=== PATIENT | female | born 1975 | race Caucasian/White ===

== ENCOUNTER 2021-08-13 17:25 | Emergency (ER) | payer BC ==
[2021-08-13 17:31] VITALS: BP 113/77
--- NOTE | 2021-08-13 17:41 | ED Physician Documentation ---
PD HPI BACK PAIN - Stated complaint Stated Complaint: BACK PX - Chief complaint Chief Complaint: Back Pain - History obtained from History obtained from: Patient - Additional information Additional information: Otherwise healthy 45-year-old woman broke her left transverse process, she thinks L1, about 2 years ago with a simple lifting accident. It was confirmed on imaging. She had pain for about a year. Today she was lifting and developed the same left-sided pain. It briefly radiated into the left leg. There is no saddle anesthesia, incontinence, weakness, fevers. No possibility of . She took Tylenol and ibuprofen prior to arrival and thinks that is sufficient. Review of Systems Constitutional: denies: Fever, Chills Musculoskeletal: reports: Back pain. denies: Neck pain PD PAST MEDICAL HISTORY - Present Medications Home Medications: Ambulatory Orders Medication Instructions Recorded Confirmed Physical Therapyx 1 unit TD ONCE #1 08/13/21 - Allergies Allergies/Adverse Reactions: Allergies Allergy/AdvReac Type Severity Reaction Status Date / Time Penicillins Allergy Unknown Verified 08/13/21 17:32 PD ED PE NORMAL - Vitals Vital signs reviewed: Yes - General General: Alert and oriented X 3, No acute distress - Abdomen Abdomen: Normal bowel sounds, Soft, Non tender - Back Back: Other (Quite tender to L1, no other spinal or muscular tenderness of the low back.) - Extremities Extremities: Other (The patient has equal and normal Achilles and patellar reflexes bilaterally. Normal sensation in all areas of the legs. Patient denies saddle anesthesia. Normal strength in flexion-extension at the ankles, knees, and flexion of the hips.) Results - Vitals Vitals: Vital Signs - 24 hr 08/13/21 17:29 Temperature 36.2 C L Heart Rate 87 Respiratory 20 Rate Blood Pressure 113/77 O2 Saturation 99 Oxygen O2 Source Room air PD MEDICAL DECISION MAKING - ED course ED course: 45-year-old woman who has previous transverse process fractures of the lumbar spine with minimal trauma presents with an exacerbation of same. Lumbar spine imaging demonstrates old pathology but nothing acute. She was reassured. Departure - Departure Disposition: 01 Home, Self Care Clinical Impression: Low back strain Qualifiers: Encounter type: initial encounter Qualified Code(s): S39.012A - Strain of muscle, fascia and tendon of lower back, initial encounter Condition: Good Record reviewed to determine appropriate education?: Yes Instructions: ED Low Back Pain Injury Prescriptions: Physical Therapyx 1 unit TD ONCE #1 Comments: As discussed, the CT scan shows remote injuries of the left transverse processes of L3 and L4 but nothing that looks particularly acute. You can continue Tylenol and ibuprofen as needed for pain. Return for new or worsening symptoms. Discharge Date/Time: 08/13/21 18:21
--- NOTE | 2021-08-13 18:11 | CT Report ---
PROCEDURE: LUMBAR SPINE WO INDICATIONS: Increased pain related to prior left L1 transverse TECHNIQUE: Noncontrast 3 mm thick sections acquired from the T12 level to the sacrum. Sagittal and coronal refo rmats were constructed. For radiation dose reduction, the following was used: automated exposure co ntrol, adjustment of mA and/or kV according to patient size. COMPARISON: No prior studies are available for comparison at the time of this dictation. FINDINGS: Image quality: Excellent. Bones: There is a remote, healed left L3 transverse process fracture, as on series 5 image 50. Ther e is a remote, unhealed L4 transverse process fracture, as on series 5 image 60. No additional transv erse process fractures are seen, including of L1. There is normal bony alignment. No acute features are seen. No acute vertebral body compression fract ures. No suspicious lytic or blastic bony lesions. Central spinal caliber is of normal overall walt jone. No pars defects. Moderate disc space narrowing is seen at L5-S1. No significant neural foraminal or central canal narr owing can be seen. Minimal to mild age-appropriate degenerative changes are seen elsewhere. Soft tissues: No retroperitoneal masses or hematomas. Visualized aorta is normal in caliber. IMPRESSION: Remote left L3 and L4 transverse process fractures, without a superimposed abnormality seen. Focal L5-S1 degenerative change is seen. Reviewed by: Vinicio Baugh MD on 08/13/2021 5:10 PM [place] Approved by: Vinicio Baugh MD on 08/13/2021 5:[address] [facility] Station ID: [id number]
== END 2021-08-13 18:21 | disposition home or self-care (01) ==
LOC: ED 17:25
DX: S39.012A Strain of muscle, fascia and tendon of lower back, initial encounter (principal); X50.0XXA Overexertion from strenuous movement or load, initial encounter
CPT/HCPCS: 99282; 99284

== ENCOUNTER 2023-04-10 19:56 | Emergency (ER) | payer BC, OTHER ==
[2023-04-10] MEDS ORDERED: ONDANSETRON ODT 4 MG TABLET TL STA (20:04)
--- NOTE | 2023-04-10 20:45 | ED Physician Documentation ---
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 For the last week she has had vertigo. It is generally mild but gets worse if she extends her neck. It does not tend to get worse with rotation of the head. She had some fullness in both ears. She has no history of vertigo prior to this. She denies diplopia or weakness, numbness, or tingling in the hands or feet. For the last 3 days after a vigorous massage she has had left-sided neck pain with associated headaches. And tonight she had a very short episode of slurred speech. PD PAST MEDICAL HISTORY - Present Medications Home Medications: Ambulatory Orders Medication Instructions Recorded Confirmed No Known Home Medications 04/10/23 04/10/23 - Allergies Allergies/Adverse Reactions: Allergies Allergy/AdvReac Type Severity Reaction Status Date / Time Penicillins Allergy Unknown Verified 04/10/23 20:12 - Social History Does the pt smoke?: No Smoking Status: Never smoker PD ED PE NORMAL - Vitals Vital signs reviewed: Yes - General General: Alert and oriented X 3, No acute distress - HEENT HEENT: PERRL, EOMI, Ears normal, Other (She has nystagmus on rightward gaze, negative [place]-Hallpike maneuver.) - Neck Neck: Supple, no meningeal sign, No bony TTP - Neuro Neuro: Alert and oriented X 3, assistant at surgery 2-12 intact, No motor deficit, No sensory deficit, Normal speech, Other (Normal finger-nose and akws-xo-bayd testing, normal gait, negative Romberg) Eye Opening: Spontaneous Motor: Obeys Commands Verbal: Oriented GCS Score: 15 - Psych Psych: Normal mood, Normal affect Results - Vitals Vitals: Vital Signs - 24 hr 04/10/23 04/10/23 04/10/23 20:08 21:30 23:00 Temperature 37.0 C Heart Rate 93 77 84 Respiratory 18 16 16 Rate Blood Pressure 149/72 H 121/76 130/71 O2 Saturation 100 100 100 04/11/23 00:00 Temperature Heart Rate 66 Respiratory 16 Rate Blood Pressure 112/61 O2 Saturation 99 Oxygen O2 Source Room air - EKG (time done) 2055 EKG releavant findings:: EKG personally interpreted by author of this note. Relevant findings are: Rate: Rate (enter#) (73) Rhythm: NSR [place]: Normal Intervals: Normal IN QRS: Normal Ischemia: Normal ST segments - Labs Labs: Laboratory Tests 04/10/23 04/10/23 04/10/23 22:21 22:21 22:21 WBC 6.1 RBC 4.21 Hgb 13.2 Hct 39.6 MCV 94.1 MCH 31.4 H MCHC 33.3 RDW 12.0 Plt Count 224 MPV 10.7 Neut # (Auto) 3.4 Lymph # (Auto) 1.9 [place] # (Auto) 0.7 Eos # (Auto) 0.1 Baso # (Auto) 0.0 Absolute Nucleated RBC 0.00 Nucleated RBC % 0.0 PT 12.4 INR 1.1 Sodium 138 Potassium 3.6 Chloride 107 Carbon Dioxide 26 Anion Gap 5.0 L BUN 13 Creatinine 0.7 Estimated GFR (MDRD) 90 Glucose 114 H Calcium 9.1 PD Medical Decision Making - ED course ED course: 47-year-old woman with vertigo. She has a known cerebellar mass and now has left neck pain after a strong massage. Differential diagnosis includes peripheral vertigo although this seems less likely given the history and physical, a worsening of her cerebellar mass, or vertebral dissection. Care to Dr Newman at [facility] of shift pending imaging. Departure - Departure Disposition: 01 Home, Self Care Clinical Impression: Vertigo, Neck pain Condition: Stable Instructions: ED Dizziness UKO Comments: You were seen in the ED for dizziness and had CTA of the head that uncovered no new issues. Please follow up with your primary care provider and neurologist for outpatient MRI. return to the ED for new or worsening symptoms or other concerns. Forms: PCP List Discharge Date/Time: 04/11/23 00:52
[2023-04-10] MEDS ORDERED: iohexoL-300 100 ML VIAL ONE (21:33)
[2023-04-10] MEDS ORDERED: METOCLOPRAMIDE 10 MG/2 ML VIAL IVP STA (22:06)
[2023-04-10] MEDS ORDERED: LORazepam 2 MG/ML VIAL IVP STA (22:06)
--- NOTE | 2023-04-10 22:30 | CT Report ---
PROCEDURE: HEAD WO INDICATIONS: vertigo TECHNIQUE: Noncontrast 4.5 mm thick angled axial sections acquired from the foramen magnum to the vertex. For r adiation dose reduction, the following was used: automated exposure control, adjustment of mA and/or kV according to patient size. COMPARISON: None. FINDINGS: Image quality: Excellent. CSF spaces: Basal cisterns are patent. No extra-axial fluid collections. Ventricles are normal in size and shape. Brain: No intracranial hemorrhage or midline shift. There is indistinct confluent hypodensity within the right cerebellar hemisphere. Skull and face: Calvarium and visualized facial bones are intact, without suspicious lesions. Sinuses: Visualized sinuses and mastoids are clear. IMPRESSION: 1. Indistinct confluent hypodensity in the right cerebellar hemisphere suggestive of vasogenic edema or an infiltrative mass lesion compatible with patient's reported history of a cerebellar mass. Recommend further evaluation with a contrast-enhanced CT or MRI when clinically feasible. Reviewed by: Avinash Jack MD on 04/10/2023 10:29 PM PDT Approved by: Avinash Jack MD on 04/10/2023 10:29 PM PDT Station ID: [id number]
[2023-04-10 22:37] LABS: BASOPHILS % (AUTO) 0.2 %; EOSINOPHILS # (AUTO) 0.1 10^3/uL (0.0-0.7); EOSINOPHILS % (AUTO) 1.8 %; HCT - HEMATOCRIT 39.6 % (37.0-47.0); HGB - HEMOGLOBIN 13.2 g/dL (12.0-16.0); LYMPHOCYTES # (AUTO) 1.9 10^3/uL (1.5-3.5); LYMPHOCYTES % (AUTO) 31.6 %; MEAN CORPUSCULAR HEMOGLOBIN 31.4 pg (27.0-31.0); MEAN CORPUSCULAR HGB CONC 33.3 g/dL (32.0-36.0); MEAN CORPUSCULAR VOLUME 94.1 fL (81.0-99.0); MEAN PLATELET VOLUME 10.7 fL (7.9-10.8); MONOCYTES # (AUTO) 0.7 10^3/uL (0.0-1.0); MONOCYTES % (AUTO) 11.2 %; NEUTROPHILS # (AUTO) 3.4 10^3/uL (1.5-6.6); PLT - PLATELET COUNT 224 10^3/uL (130-450); RED BLOOD COUNT 4.21 10^6/uL (4.20-5.40); WHITE BLOOD COUNT 6.1 x10^3/uL (4.8-10.8)
[2023-04-10 22:44] LABS: INR 1.1 (0.8-1.2); PT - PROTHROMBIN TIME 12.4 secs (9.9-12.6)
[2023-04-10 22:47] LABS: CALCIUM 9.1 mg/dL (8.5-10.3); CREATININE 0.7 mg/dL (0.4-1.0); POTASSIUM 3.6 mmol/L (3.5-5.0)
[2023-04-10] MEDS ORDERED: iohexoL-300 100 ML VIAL IVP ONE (23:53)
--- NOTE | 2023-04-11 00:12 | CT Report ---
PROCEDURE: ANGIO HEAD W/WO INDICATIONS: Vertigo, L neck pain, known cerebellar mass CONTRAST: Omni 300 80ml TECHNIQUE: Precontrast 4.5 mm thick angled axial sections acquired from the foramen magnum to the vertex. Afte r the administration of intravenous contrast, 1 mm thick sections acquired through the [place] of [place] is. Postcontrast 4.5 mm thick sections then re-acquired from the foramen magnum to the vertex. 3-di mensional nxajarj-ahxyhzuzp-ztafxbpdtg (MIP) and/or volume rendering reformats were acquired of the c entral intracranial vasculature. For radiation dose reduction, the following was used: automated ex posure control, adjustment of mA and/or kV according to patient size. COMPARISON: Noncontrast CT head 04/10/2023. Concurrent CTA of the neck. FINDINGS: Image quality: Excellent. BRAIN: CSF spaces: Basal cisterns are patent. No extra-axial fluid collections. Ventricles are normal in size and shape. Brain: No intracranial hematoma collections. No definite abnormal intracranial enhancement. Ill-defi felicita confluent hypodensity is redemonstrated within the right cerebellar hemisphere without a discrete mass visualized. Becker-white matter interface otherwise appears preserved. Skull and face: Calvarium and facial bones appear intact, without suspicious lesions. Orbits appear normal. Sinuses: Sinuses and mastoids are clear. HEAD CT ANGIOGRAPHY: Anterior circulation: Intracranial internal carotid arteries are normal in size and appear patent bi laterallyThe paired anterior cerebral arteries appear patent bilaterally. The anterior communicating artery also appears patent. The middle cerebral arteries appear patent bilaterally. No high-grade s tenosis, occlusion, or filling defects. No cerebral aneurysms identified. Posterior circulation: Visualized portions of the vertebral arteries demonstrate normal caliber, and join to form a patent basilar artery. The posterior cerebral arteries appears patent bilaterally. No high-grade stenosis, occlusion, or filling defects. No cerebral aneurysms identified. IMPRESSION: 1. No high-grade stenosis or occlusion of the central intracranial arteries. 2. No discrete enhancing cerebellar mass identified. Ill-defined confluent hypodensity redemonstrated within the right cerebral hemisphere. The findings are nonspecific and may reflect an infiltrative m ass or vasogenic edema. Recommend comparison with prior outside imaging when available and further ev aluation with a contrast-enhanced MRI when clinically feasible. Reviewed by: Avinash Jack MD on 04/11/2023 12:11 AM PDT Approved by: Avinash Jack MD on 04/11/2023 12:11 AM PDT Station ID: [id number]
--- NOTE | 2023-04-11 00:23 | CT Report ---
PROCEDURE: ANGIO NECK W INDICATIONS: Vertigo, L neck pain, known cerebellar mass CONTRAST: Omni 300 80ml TECHNIQUE: After the administration of intravenous contrast, 1.5 mm axial sections acquired from the aortic arch to the [place] of [place]. Coronal 3-D maximum intensity projection (MIP) and/or volume rendering ref ormats were then performed. For radiation dose reduction, the following was used: automated exposur e control, adjustment of mA and/or kV according to patient size. COMPARISON: Concurrent CT of the head and CTA of the brain. FINDINGS: Image quality: Excellent. NECK CT ANGIOGRAPHY: Carotid system: The great vessels demonstrate a conventional anatomy as they arise from the aortic a rch. The origins of the common carotid arteries appear patent. The common carotid arteries demonstr ate normal caliber and courses. The bifurcation regions are both widely patent. The internal caroti d arteries demonstrate normal calibers and courses. Posterior circulation: The origins of the vertebral arteries both appear patent. The more superior extracranial portions of both vertebral arteries also demonstrate normal courses and calibers. They join to form a patent basilar artery. Soft tissues: The visualized posterior fossa redemonstrated is confluent hypodensity within the right cerebellar hemisphere without a discrete enhancing mass visualized. Bones: No suspicious bony lesions. Visualized cervical spine demonstrates straightening of the cerv ical lordosis. IMPRESSION: 1. No high-grade stenosis or occlusion of the head and neck arteries. 2. Ill-defined confluent hypodensity in the right cerebellar hemisphere redemonstrated without a disc rete enhancing mass. Reviewed by: Avinash Jack MD on 04/11/2023 12:21 AM PDT Approved by: Avinash Jack MD on 04/11/2023 12:21 AM PDT Station ID: [id number]
--- NOTE | 2023-04-11 00:27 | ED Physician Documentation ---
ED Addendum - Addendum Addendum: 04/11/23 00:15 Patient endorsed to me by Dr. Tolbert awaiting CTA head to eval for vertebral dissection. The study shows patent cereberal arterial flow and stable lesion from previous imaging provided by the patient. I advised outpatient MRI and patient states she will f/u with a neurologist. return precautions given. Disposition home Condition stable Impression 1. vertigo 2. neck pain
[2023-04-11 00:32] VITALS: BP 112/61
== END 2023-04-11 00:52 | disposition home or self-care (01) ==
LOC: ED 19:56
DX: M54.2 Cervicalgia (principal); R42 Dizziness and giddiness
CPT/HCPCS: 36415; 70450; 70496; 70498; 80048; 85025; 85610; 93005; 96374; 99284; J2060; J2765; Q9967